=== PATIENT | female | born 1930 | race African-American/Black ===

== ENCOUNTER 2018-07-14 19:51 | Inpatient (IN) | payer MEDICARE ==
[2018-07-14 20:57] LABS: Troponin I 0.515 ng/mL (< 0.028)
[2018-07-14] MEDS ORDERED: Sodium Chloride 0.9% 1,000 ML IV SCH (22:30)
[2018-07-14] MEDS ORDERED: Ondansetron PF 4 MG/2 ML Vial IVP PRN (23:36)
[2018-07-14] MEDS ORDERED: Nitroglycerin 0.4 MG TAB (25 Tab Bottle) PO PRN (23:36)
[2018-07-14] MEDS ORDERED: Calcium Carbonate 500 MG ChewTAB PO PRN (23:36)
[2018-07-14] MEDS ORDERED: Ondansetron ODT 4 MG TAB PO PRN (23:36)
[2018-07-14] MEDS ORDERED: Acetaminophen 325 MG TAB PO PRN (23:36)
--- NOTE | 2018-07-14 23:56 | HP ---
PRIMARY CARE: Fe Wakefield DO CHIEF COMPLAINT: Generalized weakness with altered mentation. HISTORY OF PRESENT ILLNESS: The patient is an 87-year-old female with hypertension and dementia, was brought into the emergency room with altered mentation. History obtained from the daughter at the bedside. The patient has dementia. Over the last 1 week, the patient has been feeling generally weak and is not eating or drinking well. She is confused and barely has been out of her bed in the last 2 to 3 days. She has been not urinating well as well. Approximately 2-3 days ago , she had episode of lightheadedness with possible loss of consciousness. Details unavailable. The patient denies any complaints at this time. Again, history is limited due to advanced dementia. In the emergency room, initial vital signs showed temperature 97, pulse rate of 61, respirations 14 with a blood pressure of 179/103 with O2 saturation 96% on room air. Her EKG showed nonspecific ST-T wave changes in the lateral leads. She received 1 g Rocephin, aspirin, and IV fluids in the emergency room. Her creatinine in the ER was 3.78 compared to creatinine of 1.4 in May of this year. PAST MEDICAL HISTORY: 1. Hypertension. 2. Dementia. 3. CKD stage 3. PAST SURGICAL HISTORY: Skin cancer removal. ALLERGIES: NO KNOWN DRUG ALLERGIES. CURRENT HOME MEDICATION: 1. Hydrochlorothiazide 25 mg daily. 2. Amlodipine 5 mg daily. SOCIAL HISTORY: The patient currently lives at home, does not use any devices for ambulation. She has dementia. She does not have any history of smoking, alcohol, or drug use. Her daughter, Eunice is the primary decision maker. She is full code. FAMILY HISTORY: Cannot be obtained from the patient due to current cognitive status. REVIEW OF SYSTEMS: Cannot be obtained from the patient due to current cognitive status. PHYSICAL EXAMINATION: VITAL SIGNS: As discussed above. GENERAL: An 87-year-old female with altered mentation. HEENT: Head, atraumatic and normocephalic. Sclerae are anicteric. Moist mucous membranes. No oral lesion. NECK: Supple. No JVD appreciated. No carotid bruit. LUNGS: Clear to auscultation bilaterally. No wheezing, rales, or rhonchi. HEART: S1, S2 present. Regular rate and rhythm, 2/6 systolic murmur over the aortic area and mitral area. No heaves or pulsation. ABDOMEN: Soft, nontender. Bowel sounds present. EXTREMITIES: No edema or calf tenderness. NEUROLOGIC: Grossly nonfocal, moves all 4 extremities. Again, exam is limited due to dementia. PSYCHIATRY: As discussed above. LYMPH NODE: No palpable lymph nodes in the neck. PERIPHERAL VASCULAR: Radial pulses are palpable bilaterally, low volume. MUSCULOSKELETAL: No joint swelling or tenderness. LABORATORY FINDINGS: Potassium 5.2 with BUN 85, creatinine 3.78, troponin 0.66 , in the emergency room, repeat troponin was 0.5. WBC 8.5 with hemoglobin 12.9, platelet count of 120. Platelet count earlier this year was normal. Vitamin B12 and TSH were normal this year. Urinalysis showed 2+ bacteria without any wbc's. IMPRESSION: 1. Metabolic encephalopathy secondary to dehydration/acute kidney injury. 2. Acute kidney injury on chronic kidney disease, stage 3, suspected prerenal with Hyperkalemia. 3. Anion gap metabolic acidosis secondary to renal failure/starvation ketosis. 4. Moderate protein-calorie malnutrition. 5. Elevated troponins secondary to demand ischemia/acute kidney injury (type 2 myocardial infarction). 6. Thrombocytopenia of unclear etiology. 7. Suspected urinary tract infection. PLAN: The patient will be monitored in the telemetry unit. We will continue gentle IV hydration. Echocardiogram will be obtained. We will start her on low-dose aspirin. Renal ultrasound. Monitor platelets. Recheck labs in a.m. Repeat troponins in a.m. Hold hydrochlorothiazide. Resume amlodipine at low dose. The patient will require 2 to 3 days for stabilization. Job ID: [id number] [facility]
[2018-07-15] MEDS ORDERED: Dextrose 5 %-0.45 % NaCl 1,000 ML IV SCH (00:15)
[2018-07-15] MEDS ORDERED: cefTRIAXone\\ROCEPHIN 1 GM in Sodium Chloride 0.9% 100 ML IVPB SCH (01:00)
[2018-07-15 05:39] LABS: Critical Call Chem Troponin I RESULT DECREASING
[2018-07-15 05:44] LABS: ALT (SGPT) 8 U/L (8-55); AST (SGOT) 26 U/L (5-34); Albumin 3.7 g/dL (3.4-4.8); Alkaline Phosphatase 67 U/L (40-150); Anion Gap 21 mmol/L (10-20); BUN (Urea Nitrogen) 71 mg/dL (9.8-20.1); Bilirubin, Total 0.7 mg/dL (0.2-1.2); Calc. Creatinine Clearance 10 mL/min (70-130); Calcium 9.8 mg/dL (7.8-10.44); Carbon Dioxide 18 mmol/L (23-31); Chloride 105 mmol/L (98-107); Estimated GFR-MDRD 21; Globulin 3.5 g/dL (2.4-3.5); Glucose 91 mg/dL (83-110); Magnesium 2.2 mg/dL (1.6-2.6); Potassium 4.1 mmol/L (3.5-5.1); Protein, Total 7.2 g/dL (6.0-8.3); Sodium 140 mmol/L (136-145)
[2018-07-15 08:46] LABS: #Eosinphils 0.1 thou/uL (0.0-0.7); #Lymphocytes 1.6 thou/uL (1.20-3.40); #Monocytes 0.5 thou/uL (0.11-0.59); #Neutrophils 3.8 thou/uL (1.40-6.50); %Basophils 0.7 % (0.0-1.0); %Eosinophils 1.6 % (0.0-10.0); %Lymphocytes 26.6 % (21.0-51.0); %Monocytes 8.2 % (0.0-10.0); %Neutrophils 62.8 % (42.0-75.0); Hemoglobin 11.1 g/dL (12.0-16.0); Mean Corpuscular HGB CONC 32.5 g/dL (32.0-36.0); Mean Corpuscular Hemoglobin 32.8 pg (27.0-31.0); Mean Platelet Volume 8.1 fL (7.4-10.4); Platelet Count 102 thou/uL (130-400); Platelet Morphology Comment Appears Decreased; RBC Distribution Width 12.8 % (11.5-14.5); Red Blood Cell (RBC) Count 3.38 mill/uL (4.20-5.40); White Blood Cell (WBC) Count 6.1 thou/uL (4.8-10.8)
[2018-07-15] MEDS ORDERED: Aspirin 325 mg Enteric Coated Tablet PO SCH (09:00)
[2018-07-15] MEDS ORDERED: Heparin 5,000 UNITS/ML VIAL SC SCH (09:00)
[2018-07-15] MEDS ORDERED: Amlodipine 5 MG TAB PO SCH (09:00)
[2018-07-15] MEDS ORDERED: Enoxaparin Sodium 40 MG/0.4 ML SYRINGE SC SCH (09:00)
[2018-07-15] MEDS: Multivit, Therapeutic 1 TAB PO SCH (09:14)
[2018-07-15] MEDS: Folic Acid 1 MG TAB PO SCH (09:14)
[2018-07-15] MEDS: pyridOXINE 50 MG (B6) TAB PO SCH (09:14)
[2018-07-15] MEDS: Cyanocobalamin (Vitamin B-12) 1,000 MCG TAB PO SCH (09:15)
[2018-07-15] MEDS: Saccharomyces boulardii 250 MG CAP PO SCH (09:15)
[2018-07-15] MEDS: cefTRIAXone\\ROCEPHIN 1 GM in Sodium Chloride 0.9% 100 ML IVPB SCH (09:15)
--- NOTE | 2018-07-15 09:18 | PDOC.PN ---
- Subjective Encounter Start Date: 07/15/18 Encounter Start Time: 09:16 Subjective: Admitted due to worsening weakness and confusion associated with poor intak -: Feeling better. No chest pain, dysuria, fever or vomiting. - Objective Resuscitation Status - Order Detail: 07/14/18 23:36 Resuscitation Status Routine Resuscitation Status: FULL: Full Resuscitation Vital Signs & Weight: Vital Signs (12 hours) Temp Pulse Resp BP Pulse Ox 07/15/18 07:50 96.9 F L 52 L 16 113/54 L 98 07/15/18 04:00 97.9 F 53 L 18 120/60 98 07/15/18 00:43 99 07/14/18 22:26 97.9 F 58 L 14 149/70 H 100 Weight Weight 91 lb 4.8 oz I&O: 07/14/18 07/15/18 07/16/18 06:59 06:59 06:59 Intake Total 750 Output Total 275 Balance 475 Result Diagrams: 07/15/18 07:13 07/15/18 04:15 Additional Labs: Accuchecks 07/14/18 21:22 POC Glucose 79 Phys Exam - Physical Examination thin elderly female in no distress, afebrile HEENT: moist MMs Neck: no JVD, supple fair air entry bilaterally. Cardiovascular: RRR, no significant murmur scaphoid, non tender, BS + Musculoskeletal: no edema Neurological: moves all 4 limbs Psychiatric: A&O x 3 Dx/Plan (1) Acute non-ST elevation myocardial infarction (NSTEMI) Code(s): I21.4 - NON-ST ELEVATION (NSTEMI) MYOCARDIAL INFARCTION Status: Acute (2) Acute metabolic encephalopathy Code(s): G93.41 - METABOLIC ENCEPHALOPATHY Status: Acute (3) AZRA (acute kidney injury) Code(s): N17.9 - ACUTE KIDNEY FAILURE, UNSPECIFIED Status: Acute (4) Metabolic acidosis Code(s): E87.2 - ACIDOSIS Status: Acute (5) Severe protein-calorie malnutrition Code(s): E43 - UNSPECIFIED SEVERE PROTEIN-CALORIE MALNUTRITION Status: Acute (6) Physical deconditioning Code(s): R53.81 - OTHER MALAISE Status: Acute (7) Dementia Code(s): F03.90 - UNSPECIFIED DEMENTIA WITHOUT BEHAVIORAL DISTURBANCE Status: Acute (8) Dehydration Code(s): E86.0 - DEHYDRATION Status: Acute - Plan Substitute NS with bicarb contaianing fluid -: Start antithrombotic therapy with lovenox, asa and plavix. -: Consult cardiology -: Start nutritional rehabilitation -: PT/OT eval and treat. * .
[2018-07-15] MEDS: Senokot S 8.6-50 MG TAB PO SCH ×2 (09:40→21:10)
--- NOTE | 2018-07-15 10:52 | ULT ---
BILATERAL RENAL ULTRASOUND: Date: 07/15/18 INDICATION: Acute kidney insufficiency. No comparison. FINDINGS: Right kidney measures 7.3 cm in length. Severe right hydronephrosis with cortical thinning is noted. Dilatation of the visualized right ureter. Left kidney measures 9.0 cm in length. There is moderate left hydronephrosis. Left cortical thickness is preserved. Urinary bladder is mildly distended. There is evidence of bladder wall thickening. IMPRESSION: Bilateral hydronephrosis, severe on the right. POS: [facility]
[2018-07-15] MEDS: Sodium Bicarbonate 75 MEQ in Sodium Chloride 0.45% 1,000 ML IV SCH ×2 (10:56→22:16)
[2018-07-15 11:23] LABS: Bilirubin Negative (Negative); Blood, Urine Negative (Negative); Clarity CLEAR (Clear); Glucose, Urine (Dipstick) Negative (Negative); Leukocyte Negative (Negative); Nitrite Negative (Negative); Protein, Urine (Dipstick) Trace mg/dL (Neg-Trace); Specific Gravity, Urine 1.015 (1.002-1.036)
[2018-07-16 00:01] LABS: Critical Call Chem Troponin I RESULT DECREASING
[2018-07-16 06:30] LABS: AST (SGOT) 28 U/L (5-34); Anion Gap 17 mmol/L (10-20); Bilirubin, Total 0.5 mg/dL (0.2-1.2); Calcium 8.9 mg/dL (7.8-10.44); Carbon Dioxide 23 mmol/L (23-31); Chloride 100 mmol/L (98-107); Magnesium 1.7 mg/dL (1.6-2.6); Sodium 136 mmol/L (136-145)
[2018-07-16 06:40] LABS: #Eosinphils 0.1 thou/uL (0.0-0.7); #Lymphocytes 1.5 thou/uL (1.20-3.40); #Monocytes 0.5 thou/uL (0.11-0.59); #Neutrophils 4.4 thou/uL (1.40-6.50); %Basophils 0.2 % (0.0-1.0); %Eosinophils 1.1 % (0.0-10.0); %Lymphocytes 22.7 % (21.0-51.0); %Monocytes 8.3 % (0.0-10.0); %Neutrophils 67.6 % (42.0-75.0); Hemoglobin 11.2 g/dL (12.0-16.0); Mean Corpuscular HGB CONC 31.4 g/dL (32.0-36.0); Mean Corpuscular Hemoglobin 33.1 pg (27.0-31.0); Mean Platelet Volume 8.6 fL (7.4-10.4); Platelet Count 117 thou/uL (130-400); Red Blood Cell (RBC) Count 3.39 mill/uL (4.20-5.40); White Blood Cell (WBC) Count 6.5 thou/uL (4.8-10.8)
[2018-07-16 06:47] LABS: ALT (SGPT) 9 U/L (8-55); Albumin 3.1 g/dL (3.4-4.8); Alkaline Phosphatase 52 U/L (40-150); BUN (Urea Nitrogen) 43 mg/dL (9.8-20.1); Calc. Creatinine Clearance 21 mL/min (70-130); Estimated GFR-MDRD 48; Glucose 97 mg/dL (83-110); Protein, Total 6.1 g/dL (6.0-8.3)
[2018-07-16] MEDS ORDERED: Iopamidol 370 76% 100 ML VIAL ONE (08:13)
[2018-07-16] MEDS ORDERED: Clopidogrel Bisulfate 75 MG TAB PO SCH (09:00)
[2018-07-16] MEDS: Senokot S 8.6-50 MG TAB PO SCH ×2 (10:19→19:59)
[2018-07-16] MEDS: cefTRIAXone\\ROCEPHIN 1 GM in Sodium Chloride 0.9% 100 ML IVPB SCH (10:23)
[2018-07-16] MEDS: Folic Acid 1 MG TAB PO SCH (10:25)
[2018-07-16] MEDS: pyridOXINE 50 MG (B6) TAB PO SCH (10:25)
[2018-07-16] MEDS: Cyanocobalamin (Vitamin B-12) 1,000 MCG TAB PO SCH (10:25)
[2018-07-16] MEDS: Multivit, Therapeutic 1 TAB PO SCH (10:25)
[2018-07-16] MEDS: Saccharomyces boulardii 250 MG CAP PO SCH (10:26)
[2018-07-16] MEDS: Enoxaparin Sodium 30 MG/0.3 ML SYRINGE SC SCH (10:33)
[2018-07-16 11:56] VITALS: BMI 18.1
--- NOTE | 2018-07-16 12:11 | CON ---
DATE OF CONSULTATION: HISTORY OF PRESENT ILLNESS: The patient is an 87-year-old woman with a history of severe dementia, who was admitted apparently with altered mental status. The patient unable to give any type of coherent history. The patient has advanced dementia. The patient was noted to have an elevated troponin level and admitted for further evaluation. PAST MEDICAL HISTORY: Hypertension and dementia. PAST SURGICAL HISTORY: Skin cancer removal. ALLERGIES: NONE. MEDICATIONS: See nursing list. SOCIAL HISTORY: She lives in [place] with her family. REVIEW OF SYSTEMS: Not obtainable. PHYSICAL EXAMINATION: GENERAL: Elderly woman, in no acute distress. VITAL SIGNS: Blood pressure 131/72. NECK: No jugular venous distention. LUNGS: Clear to auscultation. HEART: Regular rate and rhythm. Normal S1, S2. ABDOMEN: Nondistended. EXTREMITIES: Showed no edema. LABORATORY DATA: Sodium 140, potassium 4.1, chloride 105, bicarb 21, BUN 71, creatinine is 2.59. White blood cell count 6.1, hemoglobin 11.1, hematocrit 34.2, and platelets are 102. The troponin was 0.515. EKG revealed normal sinus rhythm with premature ventricular contractions and poor R-wave progression, Q-wave suggestive of previous inferior infarct. IMPRESSION: 1. Dehydration. 2. Hypertension. 3. Renal insufficiency. 4. Probable old myocardial infarction. This patient presented with renal failure. Her troponin level was mildly elevated. There is no reason to expect this patient has an acute coronary syndrome with advanced dementia. No further evaluation is recommended. We continue hydrating the patient. We will follow this patient with you through her hospitalization. Job ID: [id number] [facility]
--- NOTE | 2018-07-16 14:36 | PDOC.PN ---
- Subjective Encounter Start Date: 07/16/18 Encounter Start Time: 14:33 Subjective: pt would not take her meds or let nurses or me do exam -: son at bedside & care discussed w him.at baseline she is active & independe - Objective Resuscitation Status - Order Detail: 07/14/18 23:36 Resuscitation Status Routine Resuscitation Status: FULL: Full Resuscitation MAR Reviewed: Yes Vital Signs & Weight: Vital Signs (12 hours) Temp Pulse Resp BP Pulse Ox 07/16/18 11:40 97.9 F 56 L 18 152/79 H 99 07/16/18 08:21 97.2 F L 71 18 129/87 96 07/16/18 04:14 98.0 F 67 18 96/54 L 92 L Weight Admit Weight 91 lb 4.8 oz Weight 96 lb 4.8 oz I&O: 07/15/18 07/16/18 07/17/18 06:59 06:59 06:59 Intake Total 750 900 Output Total 275 200 Balance 475 700 Result Diagrams: 07/16/18 05:53 07/16/18 05:53 Additional Labs: Microbiology 07/15/18 01:30 Urine clean catch Urine Culture - Final NO GROWTH AT 36 HOURS Laboratory Tests 07/14/18 07/14/18 07/14/18 17:00 17:00 20:18 Carbon Dioxide Anion Gap Creatinine 3.78 H Troponin I 0.644 H* 0.515 H* 07/15/18 07/15/18 07/15/18 04:15 04:15 23:28 Carbon Dioxide 18 L Anion Gap 21 H Creatinine 2.59 H Troponin I 0.490 H* 0.441 H* 07/16/18 05:53 Carbon Dioxide 23 Anion Gap 17 Creatinine 1.26 H Troponin I Phys Exam - Physical Examination Constitutional: NAD awake but would not talk to me HEENT: PERRLA Neck: no JVD Respiratory: no wheezing, no rales, no rhonchi Cardiovascular: RRR, no significant murmur Gastrointestinal: soft, non-tender, no distention Musculoskeletal: no edema, pulses present Neurological: moves all 4 limbs Psychiatric: normal affect, A&O x 3 Skin: no rash Dx/Plan (1) AZRA (acute kidney injury) Code(s): N17.9 - ACUTE KIDNEY FAILURE, UNSPECIFIED Status: Acute (2) Bilateral hydronephrosis Code(s): N13.30 - UNSPECIFIED HYDRONEPHROSIS Status: Acute (3) Acute non-ST elevation myocardial infarction (NSTEMI) Code(s): I21.4 - NON-ST ELEVATION (NSTEMI) MYOCARDIAL INFARCTION Status: Acute Comment: demand ischemia (4) Acute metabolic encephalopathy Code(s): G93.41 - METABOLIC ENCEPHALOPATHY Status: Acute (5) Dehydration Code(s): E86.0 - DEHYDRATION Status: Chronic (6) Dementia Code(s): F03.90 - UNSPECIFIED DEMENTIA WITHOUT BEHAVIORAL DISTURBANCE Status: Chronic (7) Metabolic acidosis Code(s): E87.2 - ACIDOSIS Status: Acute Comment: improved. IVF stopped (8) Physical deconditioning Code(s): R53.81 - OTHER MALAISE Status: Chronic (9) Severe protein-calorie malnutrition Code(s): E43 - UNSPECIFIED SEVERE PROTEIN-CALORIE MALNUTRITION Status: Chronic - Plan plan discussed w/ family, DVT proph w/SCDs Urine Cx negative so far. doubtful UTI.await final.on rocephin -: US concerning for B/L hydronephrosi-will get PVR & Urology recs -: Son made aware of care and prognosis.code status discussed again & remains -: Full code. -: HD stable.troponin trending down * . PT,OT HH on DC . Son does not think she will be agreeable for rehab am labs avoid nephrotoxins. Renal Fx better Review of Systems - Review of Systems Other: can not be obtained due to dementia, ac encephalopathy and non cooperation - Medications/Allergies Allergies/Adverse Reactions: Allergies Allergy/AdvReac Type Severity Reaction Status Date / Time No Known Allergies Allergy Verified 07/14/18 23:19 Medications: Current Medications Acetaminophen (Tylenol) 650 mg PO Q4H PRN PRN Reason: Headache/Fever/Mild Pain (1-3) Calcium Carbonate (Tums) 1,000 mg PO Q4H PRN PRN Reason: Heartburn or Indigestion Cyanocobalamin (Vitamin B-12) 1,000 mcg PO DAILY [facility] Last Admin: 07/16/18 10:25 Dose: 1,000 mcg Enoxaparin Sodium (Lovenox) 30 mg SC 0900 [facility] Last Admin: 07/16/18 10:33 Dose: Not Given Folic Acid (Folvite) 1 mg PO DAILY [facility] Last Admin: 07/16/18 10:25 Dose: 1 mg Ceftriaxone Sodium 1 gm/ (Sodium Chloride) 100 mls @ 200 mls/hr IVPB Q24HR [facility] Stop: 07/20/18 09:01 Last Admin: 07/16/18 10:23 Dose: 100 mls Metoprolol Succinate (Toprol Xl) 25 mg PO DAILY [facility] Last Admin: 07/16/18 10:25 Dose: 25 mg Multivitamins (Theragran) 1 tab PO DAILY [facility] Last Admin: 07/16/18 10:25 Dose: 1 tab Nitroglycerin (Nitrostat) 0.4 mg PO Q5MIN PRN PRN Reason: Chest Pain Ondansetron HCl (Zofran Odt) 4 mg PO Q6H PRN PRN Reason: Nausea/Vomiting Last Admin: 07/16/18 00:37 Dose: 4 mg Ondansetron HCl (Zofran) 4 mg IVP Q6H PRN PRN Reason: Nausea/Vomiting Pyridoxine HCl (Vitamin B 6) 50 mg PO DAILY [facility] Last Admin: 07/16/18 10:25 Dose: 50 mg Saccharomyces Boulardii (Florastor) 250 mg PO DAILY [facility] Last Admin: 07/16/18 10:26 Dose: 250 mg Senna/Docusate Sodium (Senokot S) 1 tab PO BID [facility] Last Admin: 07/16/18 10:19 Dose: Not Given Sodium Chloride (Flush - Normal Saline) 10 ml IVF PRN PRN PRN Reason: Saline Flush Sodium Chloride (Flush - Normal Saline) 10 ml IVF PRN PRN PRN Reason: Saline Flush
--- NOTE | 2018-07-16 16:54 | CT ---
CT ABDOMEN AND PELVIS WITH AND WITHOUT CONTRAST: Date: 07/16/18 Multiple axial tomograms are obtained through the abdomen and pelvis both pre and post IV contrast. P ostcontrast images were obtained in a portal venous and delayed venous phase. INDICATION: Recent ultrasound showed bilateral hydronephrosis. Difficulty urinating. History of breast cancer. As sess function. FINDINGS: Lung bases are clear. The liver and spleen are unremarkable. The gallbladder is distended and there is diffuse calcificatio n of the gallbladder wall indicating a porcelain gallbladder. Densities within the gallbladder lumen are consistent with gallstones. There is mild intra and extrahepatic biliary duct dilatation. The pancreas is atrophic. There is a large, heterogeneous mass in the region of the left adrenal gland measuring up to 8.0 cm c raniocaudal in the coronal plane. Low density center indicates central necrosis. There is some calcif ication along the superior margin of this mass. Review of the kidneys shows severe right hydronephrosis. There is dilatation and tortuosity of the pr oximal right ureter. There appears to be an enlarged thrombosed right ovarian vein. Thrombus is seen in the mid portion of this vein and this vein is dilated and may be compressing the mid right ureter. This vein leads to a heterogeneous enhancing mass in the right pelvis which may be ovarian. This also appears to be compr essing the more distal right ureter. There is no excretion into the collecting structures on the righ t on delayed sequence. This distal mass measures 3.0 cm. There is an adjacent cystic area which may a lso be ovarian measuring up to 2.6 cm in axial plane. There is moderate left hydronephrosis. A prominent left ovarian vein is also noted without evidence o f thrombosis. There is excretion into the left collecting structures on delayed imaging. The etiology for the left hydronephrosis is not readily apparent. The urinary bladder is distended and unremarkable. The uterus is prominence for age. Small amount of free fluid in the deep pelvis. Small bowel loops appear unremarkable. There is diffuse diverticulosis of the entire colon. Aorta is normal caliber. Review of osseous structures reveals a lytic process involving the pelvis on the right with erosion o f the medial wall of the acetabulum consistent with metastatic osseous lesion. Nonspecific periaortic retroperitoneal lymph nodes are noted. IMPRESSION: 1. Enlarged right ovarian vein with evidence of right ovarian vein thrombosis. This enlarged vein ma y be obstructing the proximal right ureter. This vein leads into an enlarged mass, presumably ovarian in the right pelvis, which appears to be obstructing the more distal right ureter. Severe right hydr onephrosis with delayed function on the right and cortical thinning. 2. Moderate left hydronephrosis with etiology undetermined. 3. Large, heterogeneous mass involving the left adrenal gland measuring up to 8.0 cm, consistent wit h neoplasm. 4. Gallbladder is distended and calcified consistent with porcelain gallbladder with gallstones note d. 5. Small amount of free fluid in the deep pelvis. The uterus is prominent for age. 6. Evidence of a lytic process involving the right pelvis consistent with metastasis. POS: [facility]
--- NOTE | 2018-07-17 02:12 | CON ---
DATE OF CONSULTATION: 07/16/2018 REASON FOR CONSULTATION: Consultation was requested for bilateral hydronephrosis. HISTORY OF PRESENT ILLNESS: The patient is an 87-year-old female who was admitted with mental status changes with concern for urinary tract infection. She is unaware of prior concerns about hydronephrosis or poorly functioning kidneys. She did not know that one kidney did not have a significant amount of tissue or parenchyma to it. She has had no concerns for hematuria, urinary tract infections, or retention previously. She was having decreased intake and significantly dehydrated upon admission, but no fever or chills or concerns for incomplete emptying or dysuria. PAST MEDICAL HISTORY: Significant for hypertension, dementia, chronic renal insufficiency, breast cancer which was treated 5 years ago with a lumpectomy and radiation and chemotherapy. PAST SURGICAL HISTORY: Includes right scalp BCC removed, lumpectomy. PAST [facility] HISTORY: She had one vaginal delivery; however, she does have an incision in her abdomen and her daughter is not sure whether this is from hysterectomy or . The patient reports she still has her uterus and ovaries and has not had any vaginal bleeding. ALLERGIES: NONE. MEDICATIONS: 1. Hydrochlorothiazide. 2. Amlodipine. SOCIAL HISTORY: She does not smoke. I asked whether she drinks, she stated I am hoping, but there is no concern for drug use. REVIEW OF SYSTEMS: Reveals she had a colonoscopy remotely that was okay. A mammogram 2 to 3 years ago that was okay and question about when the last Pap smear was done. She also had decreased appetite, but no diarrhea or constipation. No chest pain, shortness of breath, or cough. FAMILY HISTORY: Significant for mom either passed or does not in her life, and she was raised by her grandmother, so unknown about mother, and father in his 70s; however the patient states that was a week ago and he had no cancer. PHYSICAL EXAMINATION: GENERAL: She is alert and appropriate, but answers incorrectly or inappropriately and could not tell me her full date of . VITAL SIGNS: Her T-max is 98.0, heart rate 71, blood pressure 96/54 and then 129/87, saturating 92% to 96% on room air. Bedside commode is listed and she had 275 and then 200 also listed for output. HEENT: She is thin with poor dentition. NECK: No obvious JVD. HEART: Regular rate and rhythm. No murmurs, gallops, or rubs. LUNGS: Clear to auscultation bilaterally, but poor inspiratory effort. ABDOMEN: Soft, nondistended, nontender with a midline incision in the infraumbilical area. She had no concern for obvious prolapse, but it was difficult for her to spread her knees widely, but I was unable to palpate any concern as well. EXTREMITIES: She had no significant lower extremity edema. LABORATORY DATA: Laboratory values revealed mild anemia of 11.2 and 35.7, and BUN and creatinine of 43 and 1.26 that had been previously 3.78 and 2.59. Her urinalysis from the revealed 2+ bacteria with 0 to 3 wbc's, 0 to 3 rbc's and 0 to 3 squamous, unfortunately there was no culture from that. Then, a urinalysis dip bruce on the was negative with negative trace with the culture that is negative. A renal ultrasound from 07/15/2018, revealed severe right hydronephrosis with cortical thinning and the right ureter did appear dilated. Left hydronephrosis with good cortex. I considered the bladder normal to full as opposed to significantly distended. ASSESSMENT: We have an 87-year-old female with bilateral hydronephrosis, but improving creatinine. The right hydro appears clearly chronic in nature due to the minimal parenchyma remaining, but I'm not sure about the left. I doubt it is related to bladder outlet obstruction as she does not appear to have a significantly full bladder and a PVR was approximately 220 at the most. Since her creatinine is improving, I would hold off on a Joyner at this time, but I would get a CT scan to assess for any obvious source of obstruction or stone. I do not think her bacteria in the urine was related to infection as this is more likely colonization and we reviewed that in detail. Still, it is appripriate to give her at least 3 days of treatment just in case. Unfortunately, I doubt I will have a culture to go buy since it does not appear that there was one from the , but if so, we can use this as a guide. Depending on the CAT scan results and her emptying, I may or may not start tamsulosin to help desk team leader in her emptying and place the catheter depending on her kidney function. For now, get the CAT scan and determine further action from there. Job ID: [id number] [facility]
--- NOTE | 2018-07-17 08:24 | RAD ---
FRONTAL VIEW ABDOMEN: INDICATION: Evaluation of IV contrast clearance. FINDINGS: There is mild dilatation of contrast opacified left renal collecting system. There is moderate diste ntion of contrast opacified urinary bladder. The bowel gas pattern is nonspecific. There is calcifi c density of the right upper quadrant relating to a calcified gallbladder wall. IMPRESSION: 1. Excreted contrast within the left renal collecting system and the urinary bladder. 2. Porcelain gallbladder. POS: [facility]
[2018-07-17 08:31] LABS: Anion Gap 13 mmol/L (10-20); BUN (Urea Nitrogen) 29 mg/dL (9.8-20.1); Calc. Creatinine Clearance 22 mL/min (70-130); Calcium 9.5 mg/dL (7.8-10.44); Carbon Dioxide 28 mmol/L (23-31); Chloride 99 mmol/L (98-107); Estimated GFR-MDRD 52; Glucose 73 mg/dL (83-110); Potassium 3.6 mmol/L (3.5-5.1); Sodium 136 mmol/L (136-145)
[2018-07-17] MEDS: Cyanocobalamin (Vitamin B-12) 1,000 MCG TAB PO SCH (09:00)
[2018-07-17] MEDS: Folic Acid 1 MG TAB PO SCH (09:00)
[2018-07-17] MEDS: pyridOXINE 50 MG (B6) TAB PO SCH (09:00)
[2018-07-17] MEDS: Senokot S 8.6-50 MG TAB PO SCH ×2 (09:01→21:55)
[2018-07-17] MEDS: Tamsulosin HCl 0.4 MG CAP PO SCH ×2 (09:01→21:55)
[2018-07-17] MEDS: Multivit, Therapeutic 1 TAB PO SCH (09:01)
[2018-07-17] MEDS: Saccharomyces boulardii 250 MG CAP PO SCH (09:01)
[2018-07-17] MEDS: Enoxaparin Sodium 30 MG/0.3 ML SYRINGE SC SCH (09:02)
[2018-07-17 09:08] LABS: #Eosinphils 0.1 thou/uL (0.0-0.7); #Lymphocytes 1.9 thou/uL (1.20-3.40); #Monocytes 0.5 thou/uL (0.11-0.59); #Neutrophils 3.4 thou/uL (1.40-6.50); %Basophils 0.4 % (0.0-1.0); %Eosinophils 1.9 % (0.0-10.0); %Lymphocytes 31.3 % (21.0-51.0); %Monocytes 8.7 % (0.0-10.0); %Neutrophils 57.8 % (42.0-75.0); Hemoglobin 11.6 g/dL (12.0-16.0); Mean Corpuscular HGB CONC 32.1 g/dL (32.0-36.0); Mean Corpuscular Hemoglobin 32.8 pg (27.0-31.0); Mean Platelet Volume 8.5 fL (7.4-10.4); Platelet Count 117 thou/uL (130-400); Red Blood Cell (RBC) Count 3.52 mill/uL (4.20-5.40); White Blood Cell (WBC) Count 5.9 thou/uL (4.8-10.8)
--- NOTE | 2018-07-17 09:32 | EKG ---
Test Reason : STAT Blood Pressure : / mmHG Vent. Rate : 093 BPM Atrial Rate : 110 BPM P-R Int : 000 ms QRS Dur : 110 ms QT Int : 396 ms P-R-T Axes : 000 -63 114 degrees QTc Int : 492 ms Atrial fibrillation Left axis deviation Anterolateral infarct (cited on or before 23-DEC-2016) Abnormal ECG When compared with ECG of 14-JUL-2018 19:56, (Unconfirmed) Atrial fibrillation has replaced Sinus rhythm T wave inversion less evident in Lateral leads Confirmed by DR. Brooklynn HONEYCUTT ([id number]) on 07/17/2018 9:32:01 AM Referred By: Confirmed By:DR. Brooklynn HONEYCUTT
--- NOTE | 2018-07-17 12:47 | PDOC.PN ---
- Subjective Encounter Start Date: 07/17/18 Encounter Start Time: 12:45 Subjective: feels Ok. mostly asleep and interview done with daughter -: pt refuses IV lines and Joyner.eating little - Objective Resuscitation Status - Order Detail: 07/14/18 23:36 Resuscitation Status Routine Resuscitation Status: FULL: Full Resuscitation MAR Reviewed: Yes Vital Signs & Weight: Vital Signs (12 hours) Temp Pulse Resp BP Pulse Ox 07/17/18 12:18 97.9 F 59 L 18 136/73 98 07/17/18 09:04 68 18 07/17/18 09:00 99 07/17/18 08:59 97.7 F 56 L 18 129/59 L 96 07/17/18 04:00 52 L 114/59 L Weight Admit Weight 91 lb 4.8 oz Weight 96 lb 4.8 oz I&O: 07/16/18 07/17/18 07/18/18 06:59 06:59 06:59 Intake Total 900 1050 Output Total 200 450 Balance 700 600 Result Diagrams: 07/17/18 07:50 07/17/18 07:50 Additional Labs: Microbiology 07/15/18 01:30 Urine clean catch Urine Culture - Final NO GROWTH AT 36 HOURS 07/14/18 17:35 Venous blood - Right Arm Blood Culture - Preliminary Specimen has been received and culture in progress. No Growth to date. 07/14/18 17:00 Venous blood - Left Arm Blood Culture - Preliminary Specimen has been received and culture in progress. No Growth to date. Radiology Reviewed by me: Yes (CT-Extensive R sided hydro,Ovarian mass,adrenal Mass ,pelvic mets) Phys Exam - Physical Examination Constitutional: NAD asleep but easy to awake.reports she feels just fine HEENT: PERRLA, sclera anicteric, oral pharynx no lesions slightly dry mucosa Neck: no nodes, no JVD, supple, full ROM Respiratory: no wheezing, no rales, no rhonchi, clear to auscultation bilateral Cardiovascular: RRR, no significant murmur Gastrointestinal: soft, non-tender, no distention, positive bowel sounds Musculoskeletal: no edema, pulses present Neurological: non-focal, normal sensation, moves all 4 limbs Psychiatric: normal affect, A&O x 3 Deviation from normal: some confusion Skin: no rash Dx/Plan (1) AZRA (acute kidney injury) Code(s): N17.9 - ACUTE KIDNEY FAILURE, UNSPECIFIED Status: Acute (2) Bilateral hydronephrosis Code(s): N13.30 - UNSPECIFIED HYDRONEPHROSIS Status: Acute (3) Acute non-ST elevation myocardial infarction (NSTEMI) Code(s): I21.4 - NON-ST ELEVATION (NSTEMI) MYOCARDIAL INFARCTION Status: Acute Comment: demand ischemia (4) Acute metabolic encephalopathy Code(s): G93.41 - METABOLIC ENCEPHALOPATHY Status: Acute (5) Dehydration Code(s): E86.0 - DEHYDRATION Status: Chronic (6) Dementia Code(s): F03.90 - UNSPECIFIED DEMENTIA WITHOUT BEHAVIORAL DISTURBANCE Status: Chronic (7) Metabolic acidosis Code(s): E87.2 - ACIDOSIS Status: Acute Comment: improved. 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 -: Pt would be a very poor candidate for any invasive procedure,except palliat -: will involve palliative care team for help w decision making & re addressin -: code status. * .May benefit w ureteral stents for palliation.Will defer to Urology * NO IV access. will try to get midline * renal Fx improving.no evidence of Infection.stop ABx * cont toprol.echo w Ef 55% Review of Systems - Review of Systems Constitutional: negative: fever, chills, sweats, weakness, malaise, other ENT: negative: Ear Pain, Ear Discharge, Nose Pain, Nose Discharge, Nose Congestion, Mouth Pain, Mouth Swelling, Throat Pain, Throat Swelling, Other Respiratory: negative: Cough, Dry, Shortness of Breath, Hemoptysis, SOB with Excertion, Pleuritic Pain, Sputum, Wheezing Cardiovascular: negative: chest pain, palpitations, orthopnea, paroxysmal nocturnal dyspnea, edema, light headedness, other Gastrointestinal: negative: Nausea, Vomiting, Abdominal Pain, Diarrhea, Constipation, Melena, Hematochezia, Other Genitourinary: negative: Dysuria, Frequency, Incontinence, Hematuria, Retention , Other Musculoskeletal: negative: Neck Pain, Shoulder Pain, Arm Pain, Back Pain, Hand Pain, Leg Pain, Foot Pain, Other Neurological: negative: Weakness, Numbness, Incoordination, Change in Speech, Confusion, Seizures, Other - Medications/Allergies Allergies/Adverse Reactions: Allergies Allergy/AdvReac Type Severity Reaction Status Date / Time No Known Allergies Allergy Verified 07/14/18 23:19 Medications: Current Medications Acetaminophen (Tylenol) 650 mg PO Q4H PRN PRN Reason: Headache/Fever/Mild Pain (1-3) Calcium Carbonate (Tums) 1,000 mg PO Q4H PRN PRN Reason: Heartburn or Indigestion Cyanocobalamin (Vitamin B-12) 1,000 mcg PO DAILY [facility] Last Admin: 07/17/18 09:00 Dose: 1,000 mcg Enoxaparin Sodium (Lovenox) 30 mg SC 0900 [facility] Last Admin: 07/17/18 09:02 Dose: Not Given Folic Acid (Folvite) 1 mg PO DAILY [facility] Last Admin: 07/17/18 09:00 Dose: 1 mg Metoprolol Succinate (Toprol Xl) 25 mg PO DAILY [facility] Last Admin: 07/17/18 09:03 Dose: 25 mg Multivitamins (Theragran) 1 tab PO DAILY [facility] Last Admin: 07/17/18 09:01 Dose: 1 tab Nitroglycerin (Nitrostat) 0.4 mg PO Q5MIN PRN PRN Reason: Chest Pain Ondansetron HCl (Zofran Odt) 4 mg PO Q6H PRN PRN Reason: Nausea/Vomiting Last Admin: 07/16/18 00:37 Dose: 4 mg Ondansetron HCl (Zofran) 4 mg IVP Q6H PRN PRN Reason: Nausea/Vomiting Pyridoxine HCl (Vitamin B 6) 50 mg PO DAILY [facility] Last Admin: 07/17/18 09:00 Dose: 50 mg Saccharomyces Boulardii (Florastor) 250 mg PO DAILY [facility] Last Admin: 07/17/18 09:01 Dose: 250 mg Senna/Docusate Sodium (Senokot S) 1 tab PO BID [facility] Last Admin: 07/17/18 09:01 Dose: 1 tab Sodium Chloride (Flush - Normal Saline) 10 ml IVF PRN PRN PRN Reason: Saline Flush Sodium Chloride (Flush - Normal Saline) 10 ml IVF PRN PRN PRN Reason: Saline Flush Tamsulosin HCl (Flomax) 0.4 mg PO BID [facility] Last Admin: 07/17/18 09:01 Dose: 0.4 mg
--- NOTE | 2018-07-17 17:20 | PRG ---
DATE OF SERVICE: 07/17/2018 SUBJECTIVE: Since last seen, the patient had a CT scan ordered, and I was able to review the results for that. This revealed a concern for a right ovarian mass, which may be causing the right hydronephrosis, secondary to distended right thrombosed ovarian vein, which clearly has been there for some time based on the degree of loss of parenchyma on the right kidney. It also confirmed left hydronephrosis, but there was excretion into the collecting system and ureter. It does not go down into the bladder. There was no obvious source of obstruction or stone on the left. Unfortunately , in addition to the right ovarian mass, it also revealed an 8-cm adrenal mass along with a concern for right pelvic bone metastasis. Given these findings, I wanted to obtain a delayed x-ray to determine if the contrast has been excreted on that left kidney and into the bladder, so approximately 12-16 hours later, x-ray was performed and revealed persistent hydronephrosis with some contrast in the left renal pelvis and calices; however, the bladder was not full of contrast and enlarged similar to the CT finding, but there was no columning in the ureter itself. When the CAT scan came back showing a full bladder and even somewhat distended, I asked them to place a catheter. But the patient had refused this. Despite this , her creatinine actually improved and she has been voiding fine without complaints and denies any urgency or inability to empty. I have also started tamsulosin and she seems to be tolerating this. PHYSICAL EXAMINATION: VITAL SIGNS: She has been afebrile with heart rate in the 50s to 60s, blood pressure stable, she put out 450, and saturating 96% on room air. ABDOMEN: She has no abdominal tenderness/pain. LABORATORY DATA: Her H and H are stable as are her platelets. Her creatinine is now 1.19. CT and KUB are new findings than I have described those from above. The CT was from 07/16/2018. The KUB was from 07/17/2018. I had a long discussion with the daughter and son-in-law there along with the patient. We discussed all of these findings and what the implication is, how there is concern for her being an 87-year-old female with presumably metastatic ovarian cancer. However, there could be two separate cancers. Either way, there is metastatic cancer present. At this point, I am not sure she would do well with significant surgical intervention or chemotherapy. Primary care has also initiated Palliative Medicine as a consult and they will be seeing her sooner than later. We discussed this and all 3 seemed to be on the same page with respect to not having any sort of significant intervention other than that which treats short-term acute problems and/or keeps her comfortable. We also discussed ureteral stents and how usually when placed for cancer they block within 1-[address] months[address] I [address] not usually place those, but rather use the percutaneous nephrostomy tubes instead. This is only when we want to maximize kidney function in anticipation of chemotherapy and/or the patient is symptomatic--especially with infection. This patient does not have any of that at this time as she has a normal creatinine. She is voiding without difficulty. For these reasons, I would not push for the Joyner catheter either because she is not having concerns with discomfort on emptying. I did not want to bring up her DNR/DNI status at this time as this was a lot of information for them to process and to come to an understanding. But certainly that will need to be addressed in the near future. From my standpoint, I would continue tamsulosin at this time. SHe has completed necessary antibiotics from my standpoint. I recommend getting her set up with Palliative Medicine whether that be at a rehabilitation setting or a home setting. Job ID: [id number] WILLIAM
--- NOTE | 2018-07-17 21:31 | PDOC.EVN ---
Event Note - Event Note Event Note: ACP NOTE-(late entry for 07/17/18 at 10.00 am) CT scan results reviewed and discussed with daughter at bedside in detail.Pt somnolent and confused with baseline dementia and did not want to participate in conversation,so not woken up. I explained the CT findings concerning for Adrenal tumor as well as an Ovarian tumor with thrombosis of ovarian Vein.Also discussed the findings of mets to pelvic bone.daughter distraught after leaning the possible diagnosis of metastatic cancer.emotional support provided. I discussed that in my opinion she is very poor candidate for any intervention like cemoRx or radiation due to advanced age ,dementia and poor functional status.Pt has refused Interventions like IV lines and Joyner here in hospital also..Daughter understands and asks appropriate Qs. she will discuss it with her and pt herself but leaning towrds not doing any aggressive treatments. Will get Pallaitive care team for further help including possible hospice involvement. will address code status again tomorrow in light of new findings as daughter overwhelmed with the news today. Total time spent in discussion 20 minutes.
[2018-07-18 06:40] LABS: #Basophils 0.1 thou/uL (0.0-0.2); #Eosinphils 0.2 thou/uL (0.0-0.7); #Lymphocytes 2.4 thou/uL (1.20-3.40); #Monocytes 0.7 thou/uL (0.11-0.59); #Neutrophils 3.8 thou/uL (1.40-6.50); %Basophils 1.7 % (0.0-1.0); %Eosinophils 2.5 % (0.0-10.0); %Lymphocytes 33.5 % (21.0-51.0); %Monocytes 9.9 % (0.0-10.0); %Neutrophils 52.4 % (42.0-75.0); Hemoglobin 11.4 g/dL (12.0-16.0); Mean Corpuscular HGB CONC 32.3 g/dL (32.0-36.0); Mean Corpuscular Hemoglobin 33.4 pg (27.0-31.0); Mean Platelet Volume 8.5 fL (7.4-10.4); Platelet Count 117 thou/uL (130-400); White Blood Cell (WBC) Count 7.2 thou/uL (4.8-10.8)
[2018-07-18 07:22] LABS: Anion Gap 13 mmol/L (10-20); BUN (Urea Nitrogen) 27 mg/dL (9.8-20.1); Calc. Creatinine Clearance 22 mL/min (70-130); Calcium 9.6 mg/dL (7.8-10.44); Carbon Dioxide 29 mmol/L (23-31); Chloride 99 mmol/L (98-107); Estimated GFR-MDRD 52; Glucose 74 mg/dL (83-110); Sodium 137 mmol/L (136-145)
[2018-07-18] MEDS: pyridOXINE 50 MG (B6) TAB PO SCH (09:41)
[2018-07-18] MEDS: Cyanocobalamin (Vitamin B-12) 1,000 MCG TAB PO SCH (09:41)
[2018-07-18] MEDS: Enoxaparin Sodium 30 MG/0.3 ML SYRINGE SC SCH (09:42)
[2018-07-18] MEDS: Folic Acid 1 MG TAB PO SCH (09:42)
[2018-07-18] MEDS: Tamsulosin HCl 0.4 MG CAP PO SCH (09:42)
[2018-07-18] MEDS: Senokot S 8.6-50 MG TAB PO SCH (09:42)
[2018-07-18] MEDS: Multivit, Therapeutic 1 TAB PO SCH (09:42)
[2018-07-18] MEDS: Saccharomyces boulardii 250 MG CAP PO SCH (09:42)
--- NOTE | 2018-07-18 12:23 | PQF ---
CLINICAL DOCUMENTATION IMPROVEMENT CLARIFICATION FORM: ICD-10 Updated PLEASE DO AN ADDENDUM TO THE PROGRESS NOTE WITH ANY DOCUMENTATION UPDATES OR ADDITIONS AND CARRY THROUGH TO DC SUMMARY. THANK YOU. DATE: 07/18/18 ATTN: DR. LUO Please exercise your independent, professional judgment in responding to the clarification form. Clinical indicators are provided on the bottom of this form for your review Please check appropriate box(s): Conflicting documentation was noted in the Medical Record, please clarify if patient is being treated/monitored for: [ ] NSTEMI [ ] NV TYPE 2 [X ] DEMAND ISCHEMIA In addition, please specify: Present on Admission (POA): [X ] Yes [ ] No [ ] Unable to determine For continuity of documentation, please document condition throughout progress notes and discharge summary. Thank You. CLINICAL INDICATORS - SIGNS / SYMPTOMS/ LABS ER NOTE: "TRANSFER FROM [place] FOR NSTEMI" H&P: "ELEVATED TROPONINS SECONDARY TO DEMAND ISCHEMIA/ACUTE KIDNEY INJURY (TYPE 2 MYOCARDIAL INFARCTION) PROGRESS NOTE 07/15: "ACUTE NON-ST ELEVATION MYOCARDIAL INFARCTION" CONSULTATION NOTE 07/15 (CARDIOLOGY): "PROBABLE OLD MYOCARDIAL INFARCTION. THIS PATIENT PRESENTED WITH RENAL FAILURE." TROPONINS 0.515 / 0.490 / 0.441 RISKS: AZRA ADVANCED AGE TREATMENT: TELEMETRY MONITORING CARDIOLOGY CONSULT SERIAL CARDIAC ENZYMES LOVENOX (07/16-PRESENT) METOPROLOL (07/16-07/17) [employer] Set Up Technician [employer] Winform Viewer (This form is maintained as a part of the permanent medical record) 2014 [employer]. All Rights Reserved DORIAN [email or web address] Office: [phone] [facility]
--- NOTE | 2018-07-18 15:32 | PDOC.PN ---
- Subjective Encounter Start Date: 07/18/18 Encounter Start Time: 15:30 Subjective: feels well. talkative today but incoherent thoughts -: rpeorts that she feels good and wants to go home - Objective Resuscitation Status - Order Detail: 07/14/18 23:36 Resuscitation Status Routine Resuscitation Status: FULL: Full Resuscitation MAR Reviewed: Yes Vital Signs & Weight: Vital Signs (12 hours) Temp Pulse Pulse Pulse Resp BP BP 07/18/18 12:15 97.9 F 68 18 07/18/18 12:08 66 68 118/69 100/61 07/18/18 07:55 07/18/18 07:53 97.9 F 59 L 18 07/18/18 03:47 61 18 BP BP Pulse Ox Pulse Ox Pulse Ox 07/18/18 12:15 100/61 97 07/18/18 12:08 97 97 07/18/18 07:55 99 07/18/18 07:53 101/51 L 99 07/18/18 03:47 100/55 L 100 Weight Admit Weight 91 lb 4.8 oz Weight 96 lb 4.8 oz I&O: 07/17/18 07/18/18 07/19/18 06:59 06:59 06:59 Intake Total 1050 750 Output Total 450 800 Balance 600 -50 Result Diagrams: 07/18/18 05:51 07/18/18 05:51 Additional Labs: Microbiology 07/15/18 01:30 Urine clean catch Urine Culture - Final NO GROWTH AT 36 HOURS Laboratory Tests 07/15/18 07/16/18 07/17/18 04:15 05:53 07:50 Creatinine 2.59 H 1.26 H 1.19 H 07/18/18 05:51 Creatinine 1.18 H Phys Exam - Physical Examination Constitutional: NAD HEENT: PERRLA, moist MMs, sclera anicteric, oral pharynx no lesions Neck: no nodes, no JVD, supple, full ROM Respiratory: no wheezing, no rales, no rhonchi, clear to auscultation bilateral Cardiovascular: RRR, no significant murmur Gastrointestinal: soft, non-tender, no distention, positive bowel sounds Musculoskeletal: no edema, pulses present Neurological: non-focal, normal sensation, moves all 4 limbs Psychiatric: normal affect, A&O x 3 Skin: no rash Dx/Plan (1) AZRA (acute kidney injury) Code(s): N17.9 - ACUTE KIDNEY FAILURE, UNSPECIFIED Status: Acute (2) Bilateral hydronephrosis Code(s): N13.30 - UNSPECIFIED HYDRONEPHROSIS Status: Acute (3) Acute non-ST elevation myocardial infarction (NSTEMI) Code(s): I21.4 - NON-ST ELEVATION (NSTEMI) MYOCARDIAL INFARCTION Status: Acute Comment: demand ischemia (4) Acute metabolic encephalopathy Code(s): G93.41 - METABOLIC ENCEPHALOPATHY Status: Acute (5) Dehydration Code(s): E86.0 - DEHYDRATION Status: Chronic (6) Dementia Code(s): F03.90 - UNSPECIFIED DEMENTIA WITHOUT BEHAVIORAL DISTURBANCE Status: Chronic (7) Metabolic acidosis Code(s): E87.2 - ACIDOSIS Status: Acute Comment: improved. 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 -: Will advise home w HH or hospice as per Pt's wishes,but family pushing for -: SNIF .will refer.Dc when accpeted -: HD stable.Off of toprol d/t sinus pauses * . Review of Systems - Review of Systems Other: limited ROS due to dementia - Medications/Allergies Allergies/Adverse Reactions: Allergies Allergy/AdvReac Type Severity Reaction Status Date / Time No Known Allergies Allergy Verified 07/14/18 23:19 Medications: Current Medications Acetaminophen (Tylenol) 650 mg PO Q4H PRN PRN Reason: Headache/Fever/Mild Pain (1-3) Calcium Carbonate (Tums) 1,000 mg PO Q4H PRN PRN Reason: Heartburn or Indigestion Cyanocobalamin (Vitamin B-12) 1,000 mcg PO DAILY [facility] Last Admin: 07/18/18 09:41 Dose: 1,000 mcg Enoxaparin Sodium (Lovenox) 30 mg SC 0900 [facility] Last Admin: 07/18/18 09:42 Dose: Not Given Folic Acid (Folvite) 1 mg PO DAILY [facility] Last Admin: 07/18/18 09:42 Dose: 1 mg Multivitamins (Theragran) 1 tab PO DAILY [facility] Last Admin: 07/18/18 09:42 Dose: 1 tab Nitroglycerin (Nitrostat) 0.4 mg PO Q5MIN PRN PRN Reason: Chest Pain Ondansetron HCl (Zofran Odt) 4 mg PO Q6H PRN PRN Reason: Nausea/Vomiting Last Admin: 07/16/18 00:37 Dose: 4 mg Ondansetron HCl (Zofran) 4 mg IVP Q6H PRN PRN Reason: Nausea/Vomiting Pyridoxine HCl (Vitamin B 6) 50 mg PO DAILY [facility] Last Admin: 07/18/18 09:41 Dose: 50 mg Saccharomyces Boulardii (Florastor) 250 mg PO DAILY [facility] Last Admin: 07/18/18 09:42 Dose: 250 mg Senna/Docusate Sodium (Senokot S) 1 tab PO BID [facility] Last Admin: 07/18/18 09:42 Dose: 1 tab Sodium Chloride (Flush - Normal Saline) 10 ml IVF PRN PRN PRN Reason: Saline Flush Sodium Chloride (Flush - Normal Saline) 10 ml IVF PRN PRN PRN Reason: Saline Flush Tamsulosin HCl (Flomax) 0.4 mg PO BID [facility] Last Admin: 07/18/18 09:42 Dose: 0.4 mg
[2018-07-18 16:11] VITALS: BP 106/62; TEMP 98.1
--- NOTE | 2018-07-18 16:27 | PRG ---
DATE OF SERVICE: 07/18/2018 SUBJECTIVE: She was just swallowing some medications with nurse in the room when I checked on her. Unfortunately, her family was not there. She has no pain. She is voiding without trouble and does not feel as though she has any trouble emptying. OBJECTIVE: Vital signs are stable. Good urine output. Bladder scan showed she only had 100 mL remaining. Creatinine stable at 1.18. ASSESSMENT AND PLAN: An 87-year-old female with metastatic carcinoma, most likely ovarian, but could have two separate cancers with minimal to no function on the right kidney and mild hydronephrosis on the left, but voiding well and now emptying better. For this reason, I would continue tamsulosin twice a day and monitor. Job ID: [id number] [facility]
--- NOTE | 2018-07-19 06:14 | DIS ---
DATE OF ADMISSION: 07/14/2018 DATE OF DISCHARGE: 07/18/2018 CONDITION: At the time of discharge, stable and improved. DISCHARGE DISPOSITION: [place] swing bed. PRIMARY CARE PHYSICIAN: Fe Wakefield, DISCHARGE DIAGNOSES: 1. Acute renal insufficiency, improving. 2. Bilateral hydronephrosis due to malignant obstruction. 3. Demand ischemia. 4. Acute metabolic encephalopathy. 5. Dehydration. 6. Dementia. 7. Metabolic acidosis, resolved. 8. Physical deconditioning. 9. Severe protein-calorie malnutrition. 10. Right adrenal mass suspicious for malignancy. 11. 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 12. Pelvic bone metastasis. 13. Likely ovarian tumor with malignancy. 14. Rate controlled atrial fibrillation, new diagnosis, now in normal sinus rhythm. IN-HOUSE CONSULTATION: Urology, Dr. Traci Schneider and Cardiology, Dr. Wade Wilson. PROCEDURES DONE IN HOSPITAL: 1. Renal ultrasound, hydronephrosis which is severe on the right side is seen. 2. Transthoracic echocardiogram which shows EF of 50% to 55% and unremarkable otherwise. 3. CT scan of the abdomen and pelvis, which once again shows severe right-sided hydronephrosis which appears to be chronic and left-sided hydronephrosis as well. Enlarged right ovarian vein with thrombosis is seen. There is an enlarged mass presumably ovarian in the right pelvis obstructing the distal right ureter. A large heterogeneous mass is also seen from the left adrenal gland measuring up to 8 cm. 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 4. Abdominal x-ray, which shows excreted contrast within the left renal collecting system and the urinary bladder. DISCHARGE MEDICATIONS: 1. Norvasc 5 mg daily. 2. Vitamin B6 50 mg daily. 3. Zofran p.r.n. 4. Multivitamin daily. 5. Folic acid 1 mg daily. 6. Tums p.r.n. 7. Tylenol p.r.n. 8. B12 daily. HISTORY OF PRESENTING ILLNESS: Ms. Leroy is a pleasant 87-year-old female with past medical history of hypertension, dementia, and chronic kidney disease, who presented to the emergency room with complaints of generalized weakness and altered mentation. Her EKG showed some nonspecific ST and T-wave changes and there was concern for urinary infection, and she was found to be in acute renal failure with elevated creatinine of 3.78 in the emergency room. She was started on empiric IV antibiotics and IV fluids. She was also found to have anion gap metabolic acidosis and metabolic encephalopathy and thrombocytopenia. Urine was sent for culture. Please see admission history and physical for further details dictated by Dr. Daniels on 07/14/2018. HOSPITAL COURSE: The patient underwent renal ultrasound which showed bilateral severe hydronephrosis. For this reason, she had a CT scan of the abdomen and pelvis was done which was concerning for right ovarian tumor and left adrenal mass as well as pelvic metastasis. At this time, the family was contacted as the patient had poor functional status and baseline dementia and advanced age. Urology was contacted as well and Dr. Schneider saw the patient. In her opinion, as well as mine, the patient should not undergo any aggressive measures including stent placement. The family agreed to the plan. Palliative care team was also involved with decision making process and eventually the family decided to not pursue any aggressive treatment, but they wanted her to go to a rehab to regain some of her strength. She was referred and was approved for swing bed and will be discharged today. Upon presentation, she was also found to have elevated cardiac enzymes with troponin of 0.644. It was trended and trended down to 0.441. Cardiology was consulted and echo was done. Dr. Wilson saw the patient and recommended that this is most likely a demand ischemia. She was started on beta nikita, but it had to be later tapered off and she developed some sinus pauses. Dr. Wilson had no new recommendations for her. The patient has been cleared for discharge from urology and cardiology perspective and the family is agreeable to take her to swing bed and then eventually home. The patient was seen and examined prior to discharge. Please see hospitalist progress note from today's date for further details including [id number] documentation. TIME SPENT: Total time spent in the discharge, 35 minutes. Job ID: [id number]
== END 2018-07-18 20:08 | disposition home or self-care (01) | DRG 682 ==
LOC: ERS 19:51 → 2NO 20:33
PROVIDERS: ADMIT Internal Medicine; ATTEND Internal Medicine
DX: N17.9 Acute kidney failure, unspecified (principal); G93.41 Metabolic encephalopathy; E43 Unspecified severe protein-calorie malnutrition; I24.8 Other forms of acute ischemic heart disease; E87.2 Acidosis; Z68.1 Body mass index [BMI] 19.9 or less, adult; C79.51 Secondary malignant neoplasm of bone; I82.890 Acute embolism and thrombosis of other specified veins; F03.90 Unspecified dementia, unspecified severity, without behavioral disturbance, psychotic disturbance, mood disturbance, and anxiety; I12.9 Hypertensive chronic kidney disease with stage 1 through stage 4 chronic kidney disease, or unspecified chronic kidney disease; N18.3 Chronic kidney disease, stage 3 (moderate); E86.0 Dehydration; Z85.3 Personal history of malignant neoplasm of breast; Z79.899 Other long term (current) drug therapy; E27.9 Disorder of adrenal gland, unspecified; N83.201 Unspecified ovarian cyst, right side; E87.5 Hyperkalemia; D69.6 Thrombocytopenia, unspecified; N13.30 Unspecified hydronephrosis; Z85.828 Personal history of other malignant neoplasm of skin; Z92.3 Personal history of irradiation; Z92.21 Personal history of antineoplastic chemotherapy
CPT/HCPCS: 36415; 36416; 74018; 74178; 76770; 80048; 80053; 81003; 82553; 83735; 84484; 85025; 87086; 90471; 90662; 93005; 93010; 93306; 94760; 99285; G0008; J0696; J1644; J1650; J7050; Q0162; Q9967